=== PATIENT | male | born 2000 | race African-American/Black ===

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

== ENCOUNTER 2018-03-23 14:06 | Emergency (ER) | payer SELFPAY ==
--- NOTE | 2018-03-23 15:22 | RAD ---
LEFT HAND 3 VIEWS: Date: 03/23/18 HISTORY: Left hand pain. FINDINGS: Joint spaces are preserved. No acute fracture, dislocation, or aggressive osseous erosions. Ulna nega tive variant. IMPRESSION: No acute osseous abnormalities are demonstrated. POS: [facility]
[2018-03-23] MEDS ORDERED: Bupivacaine 0.5% 10 ML VIAL ONE (15:29)
[2018-03-23] MEDS ORDERED: Lidocaine 1% (PF) 30 ML VIAL ONE (15:29)
[2018-03-23] MEDS ORDERED: Adacel (T-DAP) 0.5 ML SYRINGE ONE (15:29)
[2018-03-23] MEDS ORDERED: traMADol HCl 50 MG TAB ONE (16:18)
== END 2018-03-23 16:22 | disposition home or self-care (01) ==
LOC: ERS 14:06
DX: S61.211A Laceration without foreign body of left index finger without damage to nail, initial encounter (principal); G43.909 Migraine, unspecified, not intractable, without status migrainosus; J45.909 Unspecified asthma, uncomplicated; W26.0XXA Contact with knife, initial encounter
CPT/HCPCS: 12001; 90471; 90715; J2001; J3490

== ENCOUNTER 2018-03-29 18:36 | Emergency (ER) | payer SELFPAY ==
[2018-03-29] MEDS ORDERED: Bacitracin Zinc 1 Packet ONE (18:43)
== END 2018-03-29 18:49 | disposition home or self-care (01) ==
LOC: ERS 18:36
DX: S61.211D Laceration without foreign body of left index finger without damage to nail, subsequent encounter (principal); G43.909 Migraine, unspecified, not intractable, without status migrainosus; J45.909 Unspecified asthma, uncomplicated; X58.XXXD Exposure to other specified factors, subsequent encounter